=== PATIENT | male | born 1945 | race Caucasian/White ===

== ENCOUNTER 2021-06-17 17:46 | Inpatient (IN) | payer OTHER ==
[~2021-06-17] VITALS: Ht 188 cm; Wt 96.9 kg
[2021-06-17 21:54] LABS: SARS-Cov-2 (COVID-19) PCR, MMC NEGATIVE (NEGATIVE)
[2021-06-17 22:45] LABS: BASOPHILS ABSOLUTE AUTO 0.03 K/mm3 (0.00-0.23); BASOPHILS PERCENT AUTO 0 % (0-2); EOSINOPHILS PERCENT AUTO 0 % (0-6); Hematocrit 48.3 % (37.0-53.0); Hemoglobin 16.7 g/dL (13.5-17.5); IMMATURE GRAN ABSOLUTE AUTO 0.08 K/mm3 (0.00-0.10); IMMATURE GRAN PERCENT AUTO 0 % (0-1); LYMPHOCYTES PERCENT AUTO 4 % (21-46); MONOCYTES ABSOLUTE AUTO 0.88 K/mm3 (0.16-1.47); MONOCYTES PERCENT AUTO 5 % (4-13); Mean Corpuscular HGB 31.6 pg (26.0-34.0); Mean Corpuscular HGB Conc 34.6 g/dL (31.5-36.5); Mean Corpuscular Volume 91 fL (80-100); Mean Platelet Volume 8.8 fL (9.1-12.4); NEUTROPHILS ABSOLUTE AUTO 17.81 K/mm3 (1.96-9.15); NEUTROPHILS PERCENT AUTO 91 % (41-73); Platelet Count 244 K/mm3 (150-400); RDW Coefficient Variation 12.2 % (11.7-14.2); RDW Standard Deviation 41.1 fL (35.1-46.3); Red Blood Cell Count 5.29 M/mm3 (4.30-5.90)
[2021-06-17 23:09] LABS: Alanine Aminotransfer (ALT/SGP 38 U/L (12-78); Albumin, Blood 3.4 g/dL (3.4-5.0); Albumin/Globulin Ratio 0.9 (0.8-1.8); Alk Phos 86 U/L (50-136); Anion Gap 7 mmol/L (6-16); Aspartate Aminotrans (AST/SGOT 32 U/L (12-37); Bilirubin, Total 0.9 mg/dL (0.1-1.0); Blood Urea Nitrogen 24 mg/dL (8-24); Bun/Creatinine Ratio 26.5 (12.0-20.0); CO2, Blood 29 mmol/L (21-32); Calcium, Blood 9.1 mg/dL (8.5-10.1); Chloride, Blood 100 mmol/L (98-108); Creatinine, Blood 0.91 mg/dL (0.60-1.20); Globulin, Blood 3.7 g/dL (2.2-4.0); Glomerular Filtration Rate >60 (60-); Glucose, Blood 174 mg/dL (70-99); Potassium, Blood 3.4 mmol/L (3.5-5.5); Sodium, Blood 136 mmol/L (136-145); Total Protein, Blood 7.1 g/dL (6.4-8.2)
[2021-06-18 04:29] LABS: BASOPHILS ABSOLUTE AUTO 0.04 K/mm3 (0.00-0.23); BASOPHILS PERCENT AUTO 0 % (0-2); EOSINOPHILS ABSOLUTE AUTO 0.01 K/mm3 (0.00-0.68); EOSINOPHILS PERCENT AUTO 0 % (0-6); Hematocrit 46.7 % (37.0-53.0); Hemoglobin 16.2 g/dL (13.5-17.5); IMMATURE GRAN ABSOLUTE AUTO 0.08 K/mm3 (0.00-0.10); IMMATURE GRAN PERCENT AUTO 1 % (0-1); LYMPHOCYTES ABSOLUTE AUTO 0.85 K/mm3 (0.84-5.20); LYMPHOCYTES PERCENT AUTO 5 % (21-46); MONOCYTES ABSOLUTE AUTO 0.38 K/mm3 (0.16-1.47); MONOCYTES PERCENT AUTO 2 % (4-13); Mean Corpuscular HGB 31.6 pg (26.0-34.0); Mean Corpuscular HGB Conc 34.7 g/dL (31.5-36.5); Mean Corpuscular Volume 91 fL (80-100); Mean Platelet Volume 8.9 fL (9.1-12.4); NEUTROPHILS ABSOLUTE AUTO 15.66 K/mm3 (1.96-9.15); NEUTROPHILS PERCENT AUTO 92 % (41-73); Platelet Count 272 K/mm3 (150-400); RDW Coefficient Variation 12.3 % (11.7-14.2); RDW Standard Deviation 41.8 fL (35.1-46.3); Red Blood Cell Count 5.12 M/mm3 (4.30-5.90); White Blood Cell Count 17.02 K/mm3 (4.00-11.30)
[2021-06-18 04:46] LABS: International Normalized Ratio 1.03; Prothrombin Time Results 10.8 Sec (9.7-11.5)
[2021-06-18 05:18] LABS: Anion Gap 7 mmol/L (6-16); Blood Urea Nitrogen 28 mg/dL (8-24); Bun/Creatinine Ratio 27.5 (12.0-20.0); CO2, Blood 30 mmol/L (21-32); Calcium, Blood 9.6 mg/dL (8.5-10.1); Chloride, Blood 99 mmol/L (98-108); Creatinine, Blood 1.02 mg/dL (0.60-1.20); Glomerular Filtration Rate >60 (60-); Glucose, Blood 232 mg/dL (70-99); Potassium, Blood 3.5 mmol/L (3.5-5.5); Sodium, Blood 136 mmol/L (136-145)
--- NOTE | 2021-06-18 05:54 | NUR ---
PT ARRIVED TO UNIT AT 2215 ON 06/17/21. HE WAS ORIENTED TO ROOM, CALL LIGHT, TV, STAFF. HE IS A/OX3. SLEEPY/DROWSY BUT EASILY AROUSABLE. ABLE TO MAKE HIS NEEDS KNOWN. PER PT, AT APPROX 1500 ON 06/17/21 HE FELL 8 FEET FROM SCAFFOLDING, LANDING ON HIS LT HIP. HE WAS NOT DISCOVERED ON GROUND UNTIL 1800. HE DENIES ANY LOC OR HITTING HIS HEAD. LLE IS ROTATED OUTWARDS W/NO ROM OR MOVEMENT ON PT'S PART. VERY PAINFUL W/ANY MOVEMENTS/REPOSITIONING. GOOD CSM'S. LLE/LT FOOT/LT TOES WARM TO TOUCH. TELE: SR, TACHY. DE-SATS ON RA TO MID-HIGH 80'S WHILE SLEEPING; OXYGEN APPLIED PER NC AT 3L. HAS BEEN NPO SINCE MN. DOES HAVE NAUSEA W/EMESIS. PRN ZOFRAN GIVEN. BS CHECKS Q6H.
--- NOTE | 2021-06-18 08:12 | NUR ---
DR CALVILLO IN TO SEE PT.
[2021-06-18] MEDS ORDERED: ALBU90OI INH (08:26)
[2021-06-18] MEDS ORDERED: BUDESONIDE-FO10.2 G3 INH (08:29)
[2021-06-18] MEDS ORDERED: TIMDOROPSO LEFTEYE (08:30)
[2021-06-18] MEDS ORDERED: LISINOPRIL-HCT1 EAC1 PO (08:31)
[2021-06-18] MEDS ORDERED: LEVSOD75 PO (08:32)
[2021-06-18] MEDS ORDERED: PRED FORTE5 M1 LEFTEYE (08:33)
[2021-06-18] MEDS ORDERED: FAMO20 PO (08:36)
[2021-06-18] MEDS ORDERED: Simvastatin20 MG PO (08:36)
[2021-06-18] MEDS ORDERED: LANTUS SOL100 UNIT/1 SC (08:38)
--- NOTE | 2021-06-18 09:37 | NUR ---
PT REPORTED SEEING PINK SPOTS ACROSS CEILING CHECKED CBG, BLOOD SUGAR 230. WILL CONTINUE TO MONITOR.
[2021-06-18 10:01] LABS: Source, Urine Catheter
[2021-06-18 10:04] LABS: Appearance, Urine Clear (Clear); Bilirubin, Urine Neg (Neg); Blood, Urine Neg (Neg); Color, Urine Amber (P-Yellow); Glucose Qualitative, Urine 3+ (Neg); Ketones, Urine 3+ (Neg); Leukocyte Esterase, Urine Neg (Neg); Nitrite, Urine Neg (Neg); Protein, Urine 2+ (Neg); Specific Gravity, Urine 1.025 (1.003-1.022); Urobilinogen, Urine 2+ (Normal)
[2021-06-18 10:26] LABS: Red Blood Cells, Urine 0-2 /hpf (0-2); Squamous Epithelial Cells Rare /hpf (Few); White Blood Cells, Urine 0-2 /hpf (0-5)
[2021-06-18 10:27] LABS: Bacteria Rare /hpf
--- NOTE | 2021-06-18 13:51 | NUR ---
SPOTS IN FRONT OF EYES PT REPORTING PINK/PURPLISH SPOTS IN FRONT OF EYES. CBG STABLE. VSS. L PUPIL SLIGHTLY LARGER THAN RIGHT, PT REPORTS HX OF EYE INJURY, PUPIL IS NOT NEW CONDITION. DENIES HITTING HEAD WHEN FELL OFF SCAFFOLDING. NOTIFIED DAY SURGERY AND DR RINCON. ORDERS OBTAINED FOR STAT HEAD CT W/O CONTRAST. NOTIFIED VISUAL MANAGER. PT TO CT AT THIS TIME.
--- NOTE | 2021-06-18 14:13 | NUR ---
PT BACK FROM CT. CALL LIGHT IN REACH.
--- NOTE | 2021-06-18 15:27 | NUR ---
SPOTS BEFORE EYES REPORTED RESULTS OF CT TO DR CALVILLO. DR CALVILLO CANCELLING PT'S SURGERY UNTIL HAS CLEARER IDEA OF WHAT IS CAUSING SPOTS. DR CALVILLO WONDERED IF HOSPITALIST THOUGHT OPTHAMOLOGY CONSULT WAS APPROPRIATE. RELAYED THIS INFORMATION TO DR RINCON. DR RINCON STATES OPTHAMOLOGY CONSULT IS NOT WARRANTED IN HIS OPINION.
--- NOTE | 2021-06-18 15:47 | NUR ---
DR RINCON IN TO SEE PT ORDERS OBTAINED.
--- NOTE | 2021-06-18 16:20 | NUR ---
PROVIDED ICEWATER/MEDICATED PER ORDERS FOR NAUSEA. US TECH IN TO SEE PT.
--- NOTE | 2021-06-18 17:07 | NUR ---
SUMMARY PT'S SURGERY CANCELLED TODAY DUE TO PT REPORTING SPOTS IN FLOATING IN FRONT OF BOTH EYES. PT TO BE NPO TONIGHT AFTER MN IN ANTICIPATION OF SURGERY TOMORROW. DR RINCON SPOKE WITH PT REGARDING SYMPTOMS AND SPOKE TO DR BURROWS (OPTHAMOLOGY) WHO STATED FELT PT WAS OKAY TO CLEAR FOR SURGERY. PT ALSO REPORTED NAUSEA AND CINTRON. MEDICATED W/OT DOSE OF REGLAN PER DR RINCON'S V.O. PT REPORTS CINTRON AND NAUSEA IMPROVED. DISCUSSED TAKING PAIN PILL W/DINNER. PT WAS UNABLE TO VOID TODAY, BS SHOWED >700, OBTAINED ORDERS AND PLACED MOLINA CATH. UA SENT PER PROTOCOL. IV FLUIDS INFUSING PER ORDERS. CALL LIGHT IN REACH.
--- NOTE | 2021-06-19 03:49 | NUR ---
SHIFT SUMMARY PT A&O X4 AND IN PLEASENT MOOD T/O SHIFT. PT REPORTS CONTINUED SPOTS BEING SEEN, NOTIFIED DURING PREVIOUS SHIFT. PAIN MEDICATED PER EMAR. VSS. NPO @ 0000 IN PREP OF POSSIBLE SURG TODAY. L HIP FX, PPP. CALL LIGHT W/IN REACH. PT RESTED COMFORTABLY IN BED T/O SHIFT.
[2021-06-19 04:16] LABS: BASOPHILS ABSOLUTE AUTO 0.04 K/mm3 (0.00-0.23); BASOPHILS PERCENT AUTO 0 % (0-2); EOSINOPHILS ABSOLUTE AUTO 0.63 K/mm3 (0.00-0.68); EOSINOPHILS PERCENT AUTO 6 % (0-6); Hematocrit 40.3 % (37.0-53.0); Hemoglobin 13.6 g/dL (13.5-17.5); IMMATURE GRAN ABSOLUTE AUTO 0.05 K/mm3 (0.00-0.10); IMMATURE GRAN PERCENT AUTO 0 % (0-1); LYMPHOCYTES ABSOLUTE AUTO 1.48 K/mm3 (0.84-5.20); LYMPHOCYTES PERCENT AUTO 13 % (21-46); MONOCYTES ABSOLUTE AUTO 0.44 K/mm3 (0.16-1.47); MONOCYTES PERCENT AUTO 4 % (4-13); Mean Corpuscular HGB 31.6 pg (26.0-34.0); Mean Corpuscular HGB Conc 33.7 g/dL (31.5-36.5); Mean Corpuscular Volume 94 fL (80-100); NEUTROPHILS PERCENT AUTO 77 % (41-73); Platelet Count 199 K/mm3 (150-400); RDW Coefficient Variation 12.8 % (11.7-14.2); RDW Standard Deviation 43.9 fL (35.1-46.3); White Blood Cell Count 11.24 K/mm3 (4.00-11.30)
[2021-06-19 04:40] LABS: Albumin, Blood 2.6 g/dL (3.4-5.0); Anion Gap 6 mmol/L (6-16); Blood Urea Nitrogen 35 mg/dL (8-24); Bun/Creatinine Ratio 33.7 (12.0-20.0); CO2, Blood 28 mmol/L (21-32); Calcium, Blood 8.2 mg/dL (8.5-10.1); Chloride, Blood 103 mmol/L (98-108); Creatinine, Blood 1.04 mg/dL (0.60-1.20); Glomerular Filtration Rate >60 (60-); Glucose, Blood 205 mg/dL (70-99); Phosphorus, Blood 2.6 mg/dL (2.5-4.9); Potassium, Blood 3.5 mmol/L (3.5-5.5); Sodium, Blood 137 mmol/L (136-145)
--- NOTE | 2021-06-19 13:33 | NUR ---
History, Chart, Medications and Allergies reviewed before start of procedure.Pre-Op teaching done. Pt verbalizes understanding. Patient confirms NPO status and agrees with scheduled surgery.
--- NOTE | 2021-06-19 18:43 | NUR ---
SHIFT SUMMARY PATIENT WENT FOR DEDRICK HIP REPAIR OF LEFT HIP FRACTURE THIS SHIFT. POD 0. BULKY DRESSING TO LEFT HIP C/D/I. DENIES PAIN. ALERT AND ORIENTED. TOLERATING REGULAR DIET AND FLUIDS. ROUTINE FLUIDS AND ABX RUNNING. MOLINA PATENT AND DRAINING. LOW SS FOR INSULIN COVERAGE. WILL REPORT TO GIFT SHOP ASSISTANT RN.
[2021-06-20 05:00] LABS: BASOPHILS ABSOLUTE AUTO 0.01 K/mm3 (0.00-0.23); BASOPHILS PERCENT AUTO 0 % (0-2); EOSINOPHILS ABSOLUTE AUTO 0.02 K/mm3 (0.00-0.68); EOSINOPHILS PERCENT AUTO 0 % (0-6); Hematocrit 31.2 % (37.0-53.0); Hemoglobin 10.6 g/dL (13.5-17.5); IMMATURE GRAN ABSOLUTE AUTO 0.04 K/mm3 (0.00-0.10); IMMATURE GRAN PERCENT AUTO 0 % (0-1); LYMPHOCYTES ABSOLUTE AUTO 0.74 K/mm3 (0.84-5.20); LYMPHOCYTES PERCENT AUTO 8 % (21-46); MONOCYTES ABSOLUTE AUTO 0.51 K/mm3 (0.16-1.47); MONOCYTES PERCENT AUTO 5 % (4-13); Mean Corpuscular HGB 31.7 pg (26.0-34.0); Mean Corpuscular Volume 93 fL (80-100); Mean Platelet Volume 9.6 fL (9.1-12.4); NEUTROPHILS ABSOLUTE AUTO 8.46 K/mm3 (1.96-9.15); NEUTROPHILS PERCENT AUTO 87 % (41-73); Platelet Count 152 K/mm3 (150-400); RDW Standard Deviation 41.5 fL (35.1-46.3); Red Blood Cell Count 3.34 M/mm3 (4.30-5.90); White Blood Cell Count 9.78 K/mm3 (4.00-11.30)
[2021-06-20 05:33] LABS: Anion Gap 9 mmol/L (6-16); Blood Urea Nitrogen 36 mg/dL (8-24); Bun/Creatinine Ratio 31.3 (12.0-20.0); CO2, Blood 24 mmol/L (21-32); Calcium, Blood 7.6 mg/dL (8.5-10.1); Chloride, Blood 103 mmol/L (98-108); Creatinine, Blood 1.15 mg/dL (0.60-1.20); Glomerular Filtration Rate >60 (60-); Glucose, Blood 300 mg/dL (70-99); Magnesium, Blood 2.1 mg/dL (1.6-2.4); Potassium, Blood 4.3 mmol/L (3.5-5.5); Sodium, Blood 136 mmol/L (136-145)
--- NOTE | 2021-06-20 05:50 | NUR ---
SHIFT SUMMARY POD1 L DEDRICK HIP WITH BULKY PRESSURE DRESSING, CDI. PT REPORTS MINIMAL PAIN T/O SHIFT. PT TOLERATING ADA DIET. PROVIDE EDUCATION REGARDING DIET AND BLOOD GLUCOSE LEVEL. PT RECEPTIVE BUT INTERMITTENTLY WILL INSIST TO ASK FOR SNACKS. CBG HAS BEEN HIGH/300, WILL ADDRESS TO ONCOMING NURSE. STRICT DIET IMPLEMENTED OVERNIGHT. SALINE LOCK BECAUSE HE WAS TOLERATING PO INTAKE, DENIES N/V. MOLINA STILL IN PLACE, PATENT, DRAINING. WILL PROVIDE REPORT TO ONCOMING NURSE.
--- NOTE | 2021-06-20 17:05 | NUR ---
patient attempting to get oob without calling for assistance, pt states he thought he was going to his grandmothers house. pt knows name, , year and month. pt reoriented to surroundings and is aware that he is in hospital after fall and hip fracture. pt assisted to stand to void. pt returned to bed after voiding , call light in reach and bed alarm in place
--- NOTE | 2021-06-20 17:18 | NUR ---
PT REPORTS PAIN CONTROLLED TO LEFT HIP AT 2-3. AQUACEL DRESSING DRY AND INTACT TO LEFT HIP. PT CONFUSED AT TIMES, REORIENTS WHEN REMINDED OF EVENTS. BED ALARM IN PLACE
--- NOTE | 2021-06-21 06:00 | NUR ---
SHIFT SUMMARY POD2 L DEDRICK HIP. L HIP WITH AQUACEL DRESSING, CDI. PT REPORTS SOME INCREASING PAIN AT MIDNIGHT. PAIN MANAGED WITH TYLENOL, AND A ONE TIME DOSE OF TORADOL AND NORCO. AOX2-3. STILL CONFUSED INTERMITTENLY. IMPULSIVE. ATTEMPT TO GET OUT OF BED SEVERAL TIMES T/O SHIFT. REORIENT EASILY. PT HAD A SMEAR BM, VOIDING WITHOUT ISSUE. TOLERATING PO INTAKE. DENIES NAUSEA AND VOMITING. USED THE BEDSIDE COMMODE X1 WITH 2-3 PERSON ASSIST. CALL LIGHT WITHIN REACH. WILL PROVIDE REPORT TO ONCOMING NURSE.
--- NOTE | 2021-06-21 08:26 | NUR ---
PT REPORTS SEEING 2 PUPPIES IN CORNER OF HIS ROOM, CHAIR MOVED SO PATIENT COULD SEE THE CORNER OF ROOM. PT REORIENTED TO SURROUNDINGS
--- NOTE | 2021-06-21 13:47 | NUR ---
NOTIFIED BY CARE MANAGEMENT THAT PT WILL BE TRANSFERRING TO [facility] LATER TODAY. NOTIFIED PATIENT OF UPCOMING TRANSFER. CONTACTED PATIENTS (KTH[facility]) BY PHONE TO INFORM OF TRANSFER PLAN. COVID SWAB COLLECTED
[2021-06-21 14:41] LABS: SARS-Cov-2 (COVID-19) PCR, MMC NEGATIVE (NEGATIVE)
--- NOTE | 2021-06-21 15:15 | NUR ---
REPORT PHONED TO BARRY AT [facility]. PT REPORTS PAIN IS CURRENTLY 1/10. LYNDA ADA DIET WITHOUT NAUSEA. PT IS A 2 PRSON ASSIST TO CHIR. PT DOES NOT RECALL OR FOLLOW HIP PRECAUTIONS AND REQUIRES FREQUENT CUES TO REMIND HIM OF PRECAUTIONS. VOIDING CLEAR YELLOW URINE. PTS PRESENT AT BEDSIDE AND IN AGREEMENT WITH TRANSFER PLAN
--- NOTE | 2021-06-21 15:47 | NUR ---
DISCHARGED VIA WHEELCHAIR [facility]. PT PRESENT AT TIME OF DISCHARGE
--- NOTE | 2021-06-24 12:09 | NUR ---
06/24/21 1209 Doris Sneed VERIFICATIONS: EDIT CHART.
== END 2021-06-21 15:45 | DRG 522 ==
LOC: ER 17:46 → ERHOLD 21:07 → SURS 21:07
PROVIDERS: Emergency Medicine; Internal Medicine; Orthopaedic Surgery; ADMIT Family Medicine
PROC: 3E02340 Introduction of Influenza Vaccine into Muscle, Percutaneous Approach (ICD-10-PCS; 2021-06-19)
PROC: 0SRS0JZ Replacement of Left Hip Joint, Femoral Surface with Synthetic Substitute, Open Approach (ICD-10-PCS; principal; 2021-06-19 15:00)
DX: S72.012A Unspecified intracapsular fracture of left femur, initial encounter for closed fracture (principal); Z20.822 Contact with and (suspected) exposure to COVID-19; N40.1 Benign prostatic hyperplasia with lower urinary tract symptoms; R33.8 Other retention of urine; Z23 Encounter for immunization; E11.9 Type 2 diabetes mellitus without complications; I10 Essential (primary) hypertension; E03.9 Hypothyroidism, unspecified; J44.9 Chronic obstructive pulmonary disease, unspecified; E78.5 Hyperlipidemia, unspecified; H18.512 Endothelial corneal dystrophy, left eye; K21.9 Gastro-esophageal reflux disease without esophagitis; W12.XXXA Fall on and from scaffolding, initial encounter; Y93.H3 Activity, building and construction
CPT/HCPCS: 36415; 70450; 72170; 73502; 80048; 80053; 80069; 81001; 82947; 83735; 84443; 85025; 85610; 90686; 93005; 93010; 93880; 94640; 94664; 94760; 96374; 96375; 97116; 97162; 97166; 97530; 97535; 99285-25; A9270; C1776; J0171; J0690; J0735; J1100; J1650; J1815; J1885; J2250; J2370; J2405; J2550; J2704; J2765; J2795; J3010; J3370; J7030; J7120; U0004